=== PATIENT | male | born 1955 | race Caucasian/White ===

== ENCOUNTER 2016-05-04 18:22 | Emergency (ER) | payer OTHER ==
[~2016-05-04] VITALS: Ht 193 cm; Wt 146.5 kg
[~2016-05-04 18:22] MED LIST: ACETAMINOPHEN-1 EAC1; ADULT LOW DOSE81 MG; AMOXICILLIN 50500 MG PO; BENZONATATE200 MG; CARISOPRODOL 3350 MG PO; CLONAZEPAM 0.50.5 M1 PO; CLONAZEPAM 1 MG1 M1 PO; FLEXERIL PO; FLONASE 0.05%50 MCG NASAL; GARAMYCIN5 M1 OP; IBUPROFEN 800800 M1 PO; MEDROLDOSEPACK PO; MUCINEX600 MG; NORCO 5-325 TA1 EACH PO; NYQUIL D COLD295 ML; OMEPRAZOLE40 MG PO; OXYBUTYNIN 5 MG5 M2; PREDNISONE50 MG PO; PROAIR HFA8.5 GM IH; PROMETHAZINE-C120 ML PO; PROMETHAZINE/C118 ML PO; TESSALON PERLE100 MG PO; XANAX XR1 MG PO; ZANAFLEX4 MG PO; ZANTAC 150MG T150 M1
[2016-05-04 19:30] LABS: BASOPHILS 0.9 % (0.0-2.0); EOSINOPHILS 3.9 % (0.0-3.0); LYMPHOCYTES 19.7 % (24.0-44.0); MCH 27.9 pg (26.0-34.0); MONOCYTES 7.8 % (1.0-8.0); PLATELET COUNT 214 thou/uL (150-400); POLYS 67.7 % (36.0-66.0); RBC 5.73 mil/uL (4.50-6.00); RDW 13.3 % (10.5-14.5); WBC 10.3 thou/uL (4.0-11.0)
[2016-05-04 19:33] LABS: MANUAL DIFF NO
[2016-05-04 19:40] LABS: CALCIUM 9.1 mg/dL (8.5-10.1); CREATININE 1.1 mg/dL (0.6-1.3); POTASSIUM 3.9 mmol/L (3.5-5.1)
[2016-05-04] MEDS ORDERED: VENTOLIN HFA 1818 GM INH (19:50)
[2016-05-04] MEDS ORDERED: PREDNISONE 20 M20 MG PO (19:50)
== END 2016-05-04 20:02 | disposition home or self-care (01) ==
LOC: ER 18:22
PROVIDERS: Physician Assistant
DX: J30.9 Allergic rhinitis, unspecified (principal); J98.01 Acute bronchospasm; G50.0 Trigeminal neuralgia; Z88.1 Allergy status to other antibiotic agents

== ENCOUNTER → 2016-10-06 | Outpatient (CLI) | payer OTHER ==
[~2016-10-06] MED LIST changes: +PREDNISONE 20 M20 MG PO; +VENTOLIN HFA 1818 GM INH
== END ==
LOC: RAD 13:11
DX: R06.00 Dyspnea, unspecified (principal)

== ENCOUNTER 2018-02-12 18:24 | Emergency (ER) | payer OTHER ==
[~2018-02-12] VITALS: Ht 193 cm; Wt 153.3 kg
[~2018-02-12 18:24] MED LIST changes: +ARTHRITIS PAIN650 M3 PO; +BREO ELLIPTA 21 EACH INH; +CORTISPORIN OTI10 M2 OTIC
[2018-02-12] MEDS ORDERED: VENTOLIN HFA INH8 GM INH (19:13)
[2018-02-12 19:17] LABS: ABSOLUTE NEUTROPHILS 6.1 thou/uL (1.4-8.2); BASOPHILS 0.4 % (0.0-2.0); EOSINOPHILS 0.4 % (0.0-3.0); HEMATOCRIT 53.4 % (42.0-52.0); HEMOGLOBIN 18.2 gm/dL (14.0-18.0); LYMPHOCYTES 10.8 % (24.0-44.0); MCH 28.6 pg (26.0-34.0); MCHC 34.1 g/dL (28.0-37.0); MCV 83.7 fL (80.0-100.0); PLATELET COUNT 226 thou/uL (150-400); POLYS 76.4 % (36.0-66.0); RBC 6.38 mil/uL (4.50-6.00); RDW 13.8 % (10.5-14.5); WBC 7.9 thou/uL (4.0-11.0)
[2018-02-12 19:25] LABS: ANION GAP 6 mmol/L (7-16); BUN 14 mg/dL (7-18); CALCIUM 9.1 mg/dL (8.5-10.1); CHLORIDE 99 mmol/L (98-107); CO2 31 mmol/L (21-32); CREATININE 1.1 mg/dL (0.7-1.3); GLUCOSE 129 mg/dL (74-106); POTASSIUM 4.1 mmol/L (3.5-5.1); SODIUM 136 mmol/L (136-145)
[2018-02-12 19:33] LABS: ALBUMIN 3.4 g/dL (3.4-5.0); LIPASE 118 U/L (73-393); SGOT 21 U/L (15-37); SGPT 29 U/L (30-65); TOTAL BILIRUBIN 0.5 mg/dL (<0.1-1.0); TOTAL PROTEIN 7.6 g/dL (6.4-8.2); TROPONIN-I <0.06 ng/mL (<0.06)
[2018-02-12] MEDS ORDERED: PEPCID20 MG PO (20:48)
[2018-02-12] MEDS ORDERED: PHENERGAN 25 MG25 M1 PO (20:48)
[2018-02-12 21:26] VITALS: BP 163/82
--- NOTE | 2018-02-13 22:13 | EKG ---
[address] [address] ELECTROCARDIOGRAM REPORT Name: CARLTON SINGH Room [id number] Admission: 02/12/18 Attend Phys: Discharge: 02/12/18 Date of : 55 Report #: [id number] THIS REPORT FOR: //name// [facility] ED Test Date: 2018-02-12 Test Time: 19:20:57 Pat Name: CARLTON SINGH Department: Room: Gender: Curriculum Consultant: SAMIRA : 1955 Requested By: Fallon Scanlon Order Number: [id number] MD: Shane Jaramillo Measurements Intervals [place] Rate: 76 P: 43 TN: 154 QRS: 75 QRSD: 93 T: 54 QT: 362 QTc: 408 Interpretive Statements Sinus rhythm Compared to ECG 12/04/2012 19:39:00 No significant changes Electronically Signed On 02-13-2018 22:13:02 WEB DESIGNER DEVELOPER by Shane Jaramillo [email or web address] <ELECTRONICALLY SIGNED> By: Shane Jaramillo MD 02/13/18 2213 192 19 Shane Jaramillo MD /MICHAEL
== END 2018-02-12 21:26 | disposition home or self-care (01) ==
LOC: ER 18:24
PROVIDERS: Physician Assistant
DX: R11.2 Nausea with vomiting, unspecified (principal); R19.7 Diarrhea, unspecified; R10.13 Epigastric pain; G43.909 Migraine, unspecified, not intractable, without status migrainosus; J44.9 Chronic obstructive pulmonary disease, unspecified; Z88.1 Allergy status to other antibiotic agents

== ENCOUNTER 2019-01-28 18:31 | Emergency (ER) | payer OTHER ==
[~2019-01-28] VITALS: Ht 193 cm; Wt 152.0 kg
[~2019-01-28 18:31] MED LIST changes: +PEPCID20 MG PO; +PHENERGAN 25 MG25 M1 PO; +VENTOLIN HFA INH8 GM INH
[2019-01-28] MEDS ORDERED: IBU600 MG PO (18:44)
[2019-01-28] MEDS ORDERED: PENICILLIN V P500 MG PO (18:45)
[2019-01-28 19:59] LABS: ABSOLUTE NEUTROPHILS 5.5 thou/uL (1.4-8.2); BASOPHILS 1.1 % (0.0-2.0); EOSINOPHILS 4.2 % (0.0-3.0); HEMATOCRIT 45.9 % (42.0-52.0); HEMOGLOBIN 15.3 gm/dL (14.0-18.0); LYMPHOCYTES 16.4 % (24.0-44.0); MCH 28.3 pg (26.0-34.0); MCHC 33.3 g/dL (28.0-37.0); MONOCYTES 6.3 % (1.0-8.0); PLATELET COUNT 231 thou/uL (150-400); RDW 13.5 % (10.5-14.5); WBC 7.6 thou/uL (4.0-11.0)
[2019-01-28 20:21] LABS: ANION GAP 4 mmol/L (7-16); BUN 12 mg/dL (7-18); CHLORIDE 104 mmol/L (98-107); CO2 29 mmol/L (21-32); GLUCOSE 192 mg/dL (74-106); POTASSIUM 3.9 mmol/L (3.5-5.1); SODIUM 137 mmol/L (136-145); TROPONIN-I <0.06 ng/mL (<0.06)
[2019-01-28 20:35] LABS: CALCIUM 9.4 mg/dL (8.5-10.1)
[2019-01-28] MEDS ORDERED: PREDNISONE 20 M20 M1 PO (20:57)
[2019-01-28 21:24] VITALS: BP 177/69
--- NOTE | 2019-01-29 10:30 | EKG ---
[address] [place] [address] ELECTROCARDIOGRAM REPORT Name: CARLTON SINGH Room [facility]: [facility] [id number] Admission: 01/28/19 Attend Phys: Discharge: 01/28/19 Date of : 55 Report #: [id number] THIS REPORT FOR: //name// [facility] ED Test Date: 2019-01-28 Test Time: 19:30:47 Pat Name: CARLTON SINGH Department: Room: Gender: Children'S Book Author: BLAKE : 1955 Requested By: Carlos Ulloa Order Number: [id number] MD: Paramjit Lobato Measurements Intervals [place] Rate: 73 P: 74 CO: 157 QRS: 61 QRSD: 94 T: 58 QT: 374 QTc: 413 Interpretive Statements Sinus rhythm Compared to ECG 02/12/2018 19:20:57 No significant changes Electronically Signed On 01-29-2019 10:29:47 REFRIGERATION ENGINE OPERATOR by Paramjit Lobato [email or web address] <ELECTRONICALLY SIGNED> By: Paramjit Lobato MD 01/29/19 1029 193 29 Paramjit Lobato MD /EPI
== END 2019-01-28 21:24 | disposition home or self-care (01) ==
LOC: ER 18:31
PROVIDERS: Emergency Medicine
DX: J06.9 Acute upper respiratory infection, unspecified (principal); D22.4 Melanocytic nevi of scalp and neck; E66.9 Obesity, unspecified; G43.909 Migraine, unspecified, not intractable, without status migrainosus; Z68.41 Body mass index [BMI] 40.0-44.9, adult; Z88.1 Allergy status to other antibiotic agents

== ENCOUNTER → 2019-03-09 | Outpatient (CLI) | payer OTHER ==
[~2019-03-09] MED LIST changes: +IBU600 MG PO; +PENICILLIN V P500 MG PO; +PREDNISONE 20 M20 M1 PO
== END ==
LOC: CAT 15:44
DX: Z12.2 Encounter for screening for malignant neoplasm of respiratory organs (principal); I25.10 Atherosclerotic heart disease of native coronary artery without angina pectoris; J98.4 Other disorders of lung; Z87.891 Personal history of nicotine dependence

== ENCOUNTER → 2020-12-10 | Outpatient (CLI) | payer OTHER | LOC: RAD 10:20 | PROVIDERS: ATTEND Family Medicine | DX: J98.11 Atelectasis (principal); J84.89 Other specified interstitial pulmonary diseases; J98.4 Other disorders of lung; J44.9 Chronic obstructive pulmonary disease, unspecified ==